=== PATIENT | male | born 1975 | race Caucasian/White ===

== ENCOUNTER 2017-07-10 20:33 | Emergency (ER) | payer SELFPAY ==
[2017-07-10 22:22] VITALS: BP 132/86; PULSE 99; RESP 20; TEMP 37.2; O2SAT 99; BMI 26.6
--- NOTE | 2017-07-10 23:11 | HMH.EDUTC ---
[facility] – [place] Disposition Clinical Impression: Vomiting and diarrhea, Esophagitis Disposition: Home, Self-Care Condition on Discharge: Good Instructions: DI for Viral Gastroenteritis -- Adult, DI for Esophagitis Additional Instructions: Should improve with cocktail given. Likely due to so much vomiting today. Sleep elevated tonight. Avoid foods that increase acid (chocolate, spicy foods, peppermints, tomato based foods, greasy foods) and avoid eating 2 hours before laying down Follow up with primary care for new or worsening symptoms. Forms: Work/School Release Time of Disposition: 23:32 Medical Decision Making Vital Signs: 07/10/17 22:22 Temperature 99 F Temperature Source Temporal Artery Scan Pulse Rate [Brachial] 99 H Respiratory Rate 20 Blood Pressure [Right Arm] 132/86 Blood Pressure Mean [Right Arm] 101 Blood Pressure Source [Right Arm] Automatic Cuff Blood Pressure Position [Right Arm] Sitting 02 Sat by Pulse Oximetry 99 Oxygen Delivery Method Room Air Orders (Tests/Meds): ED MEDICATIONS Discontinued Medications Generic Name Dose Route Start Last Admin Trade Name Freq PRN Reason Stop Dose Admin Belladonna Alkaloids 60 ml 07/10/17 23:17 07/10/17 23:23 Gi Cocktail 60ml Udc PO 07/10/17 23:18 60 ml ONCE ONE Administration - Jean Marie Inquiry Pt receiving controlled substance: No - Reevaluation(s) Time: 11:31 Reevaluation #1: Burning resolved. [facility] [place] HPI - General Stated complaint: V&D,aBD PAIN Time Seen by Provider: 07/10/17 23:11 Mode of Arrival: Ambulatory Source of Information: Patient Limitations: No Limitations Description of Symptoms (Recalled from Triage Doc. by RN): V/D, ABD FELS LIKE ITS ON FIRE HEENT Symptoms (Recalled from RN notes): No Resp Symptoms (Recalled from RN notes): No Skin Symptoms (Recalled from RN notes): No MS Symptoms (Recalled from RN notes): No Functional Status (Recalled from RN notes): NA - History of Present Illness Provider Complaint: c/o stomach burning like it is on fire . Started w/ waking up to N/V/D. Reporting from approx 9-12 this morning it was constantly coming out of both ends. like water . Since then, diarrhea has resolved. Vomiting has continued throughout the day with anything other than water (currently drinking Mt Dew). No nausea. Ate meatload for supper and came right back up . Does not currently have nausea I feel great except this burning . Was feeling good until he went to bed tonight. Once laying down, burning started. Unable to get comfortable. Hx of GERD. Typically controlled w/ omeprazole. Denies chest pain, cough, fever, abdominal pain just this burning is all . No known sick contacts. - Related Data Home Medications Medication Instructions Recorded Confirmed Lisinopril [Lisinopril 40mg Tablet] 40 mg PO DAILY 07/10/17 07/10/17 Omeprazole [Omeprazole 40mg 40 mg PO DAILY 07/10/17 07/10/17 Capsule] Allergies Allergy/AdvReac Type Severity Reaction Status Date / Time No Known Allergies Allergy Verified 07/10/17 22:26 - Worker's Comp Is this a Worker's Comp case?: No [facility] History I have reviewed the patient's past medical history: Yes Medical History: Reports:: Gastroesophageal Reflux Disease(GERD), Hypertension Denies:: Diabetes Mellitus Type 1, Diabetes Mellitus Type 2 Other Surgeries: Yes: Other (brain surgery) - Social History Alcohol Intake: never - Psychiatric History Expresses thoughts of harming self/others: None Suicide Plan Description: No Plan ROS Obtained: Yes Systems reviewed as appropriate & no additional complaints - Constitutional Constitutional: Reports as per HPI, Denies body ache, Denies chills, Denies fatigue, Denies poor appetite - Eyes Eyes: Denies change in vision, Denies eye discharge, Denies eye pain - ENT Ears, Nose, Mouth, and Throat: Denies otalgia, Denies nasal congestion, Denies nasal discharge, Denies pain with swallowing - Cardiovascular Cardiov
--- NOTE | 2017-07-10 23:17 | ED_ITS ---
[facility] [place] Impression: Vomiting and diarrhea, Esophagitis Disposition: Home, Self-Care Condition on Discharge: Good Instructions: DI for Viral Gastroenteritis -- Adult, DI for Esophagitis Additional Instructions: Should improve with cocktail given. Likely due to so much vomiting today. Sleep elevated tonight. Avoid foods that increase acid (chocolate, spicy foods, peppermints, tomato based foods, greasy foods) and avoid eating 2 hours before laying down Follow up with primary care for new or worsening symptoms. Forms: Work/School Release Time of Disposition: 23:32 Medical Decision Making Vital Signs: 07/10/17 22:22 Temperature 99 F Temperature Source Temporal Artery Scan Pulse Rate [Brachial] 99 H Respiratory Rate 20 Blood Pressure [Right Arm] 132/86 Blood Pressure Mean [Right Arm] 101 Blood Pressure Source [Right Arm] Automatic Cuff Blood Pressure Position [Right Arm] Sitting 02 Sat by Pulse Oximetry 99 Oxygen Delivery Method Room Air Orders (Tests/Meds): ED MEDICATIONS Discontinued Medications Generic Name Dose Route Start Last Admin Trade Name Freq PRN Reason Stop Dose Admin Belladonna Alkaloids 60 ml 07/10/17 23:17 07/10/17 23:23 Gi Cocktail 60ml Udc PO 07/10/17 23:18 60 ml ONCE ONE Administration - Jean Marie Inquiry Pt receiving controlled substance: No - Reevaluation(s) Time: 11:31 Reevaluation #1: Burning resolved. [facility] [place] - General Stated complaint: V&D,aBD PAIN Time Seen by Provider: 07/10/17 23:11 Mode of Arrival: Ambulatory Source of Information: Patient Limitations: No Limitations Description of Symptoms (Recalled from Triage Doc. by RN): V/D, ABD FELS LIKE ITS ON FIRE HEENT Symptoms (Recalled from RN notes): No Resp Symptoms (Recalled from RN notes): No Skin Symptoms (Recalled from RN notes): No MS Symptoms (Recalled from RN notes): No Functional Status (Recalled from RN notes): NA - History of Present Illness Provider Complaint: c/o stomach burning like it is on fire . Started w/ waking up to N/V/D. Reporting from approx 9-12 this morning it was constantly coming out of both ends. like water . Since then, diarrhea has resolved. Vomiting has continued throughout the day with anything other than water (currently drinking Mt Dew). No nausea. Ate meatload for supper and came right back up . Does not currently have nausea I feel great except this burning . Was feeling good until he went to bed tonight. Once laying down, burning started. Unable to get comfortable. Hx of GERD. Typically controlled w/ omeprazole. Denies chest pain, cough, fever, abdominal pain just this burning is all . No known sick contacts. - Related Data Home Medications Medication Instructions Recorded Confirmed Lisinopril [Lisinopril 40mg Tablet] 40 mg PO DAILY 07/10/17 07/10/17 Omeprazole [Omeprazole 40mg 40 mg PO DAILY 07/10/17 07/10/17 Capsule] Allergies Allergy/AdvReac Type Severity Reaction Status Date / Time No Known Allergies Allergy Verified 07/10/17 22:26 - Worker's Comp Is this a Worker's Comp case?: No [facility] History I have reviewed the patient's past medical history: Yes Medical History: Reports:: Gastroesophageal Reflux Disease(GERD), Hypertension Denies:: Diabetes Mellitus Type 1, Diabetes Mellitus T
[2017-07-10 23:32] VITALS: BP 132/86; PULSE 99; RESP 20; TEMP 37.2; O2SAT 99
== END 2017-07-10 23:34 | disposition home or self-care (01) ==
PROVIDERS: Emergency Provider Nurse Practitioner Family
DX: K20.9 Esophagitis, unspecified (principal); K21.9 Gastro-esophageal reflux disease without esophagitis; I10 Essential (primary) hypertension
CPT/HCPCS: 99202

== ENCOUNTER 2017-07-11 12:13 | Emergency (ER) | payer SELFPAY ==
[2017-07-11 12:23] VITALS: BP 134/80; PULSE 93; RESP 20; TEMP 36.4; O2SAT 98; BMI 26.6
--- NOTE | 2017-07-11 12:29 | HMH.EDUTC ---
[facility] [place] Disposition Clinical Impression: GERD (gastroesophageal reflux disease) Qualifiers: Esophagitis presence: with esophagitis Qualified Code(s): K21.0 - Gastro-esophageal reflux disease with esophagitis Disposition: Home, Self-Care Condition on Discharge: Good Instructions: Gastroesophageal Reflux Disease (Alternative Therapy), DI for Gastroesophageal Reflux Disease (GERD), GERD Diet Additional Instructions: Follow up with family doctor immediately If any difficulty breathing, blood in stools, blood in vomit or any other life threatening symptoms straight to ER Avoid spicy, or fried foods for next several days to allow stomach time to heal and settle down Sleep elevated Avoid foods that increase acid (chocolate, spicy foods, peppermints, tomato based foods, greasy foods) and avoid eating 2 hours before laying down Follow up with primary care for new or worsening symptoms. Referrals: Patsy Mcgrath APRN [Primary Care Provider] - As needed Time of Disposition: 12:38 Medical Decision Making - Medical Records Medical records reviewed: Yes: I reviewed the patient's medical records. Vital Signs: 07/11/17 12:23 Temperature 97.5 F L Temperature Source Temporal Artery Scan Pulse Rate [Right] 93 H Respiratory Rate 20 Blood Pressure [Right Arm] 134/80 Blood Pressure Mean [Right Arm] 98 Blood Pressure Source [Right Arm] Automatic Cuff Blood Pressure Position [Right Arm] Sitting 02 Sat by Pulse Oximetry 98 Oxygen Delivery Method Room Air - Jean Marie Inquiry Pt receiving controlled substance: No Jean Marie was queried for this patient: No - Reevaluation(s) Time: 12:34 Reevaluation #1: Patient educated to follow up with family doctor to have medication changed and adding and removing of medication. Patient verbalized understanding Time: 12:38 Reevaluation #3: Patient state that burning in stomach improved after GI cocktail [facility] [place] HPI - General Stated complaint: stomach pain, burning sensation Mode of Arrival: Ambulatory Source of Information: Patient Limitations: No Limitations Description of Symptoms (Recalled from Triage Doc. by RN): c/o stomach problems here last night for same HEENT Symptoms (Recalled from RN notes): No Resp Symptoms (Recalled from RN notes): No Skin Symptoms (Recalled from RN notes): No MS Symptoms (Recalled from RN notes): No Functional Status (Recalled from RN notes): N - History of Present Illness Provider Complaint: Patient state that he was seen in the [facility] last night for burning in his stomach States that he has a history of GERD State that recently he wasn't eating like he should and eat some fried foods that irritated his stomach State that yesterday he had vomiting and diarrhea all day States that he came in here last night because he was having the burning feeling and was given some medication to drink and it helped witht the burning in his stomach State that this morning he woke up again and was having the same burning so he came back to the [facility] to see if he could get a prescription for that medication - Related Data Home Medications Medication Instructions Recorded Confirmed Lisinopril [Lisinopril 40mg Tablet] 40 mg PO DAILY 07/10/17 07/10/17 Omeprazole [Omeprazole 40mg 40 mg PO DAILY 07/10/17 07/10/17 Capsule] Allergies Allergy/AdvReac Type Severity Reaction Status Date / Time No Known Allergies Allergy Verified 07/10/17 22:26 - Worker's Comp Is this a Worker's Comp case?: No [facility] History I have reviewed the patient's past medical history: Yes Medical History: Reports:: Gastroesophageal Reflux Disease(GERD), Hypertension Denies:: Diabetes Mellitus Type 1, Diabetes Mellitus Type 2 Other Surgeries: Yes: Other (brain surgery) - Social History Alcohol Intake: never - Psychiatric History Expresses thoughts of harming self/others: None Suicide Plan Description: No Plan ROS Obtained: Yes All systems reviewed & no additional complaints - Gastroin
[2017-07-11 12:31] VITALS: BP 134/80; PULSE 93; RESP 20; TEMP 36.4
--- NOTE | 2017-07-11 12:32 | ED_ITS ---
[facility] [place] Disposition Clinical Impression: GERD (gastroesophageal reflux disease) Qualifiers: Esophagitis presence: with esophagitis Qualified Code(s): K21.0 - Gastro- esophageal reflux disease with esophagitis Disposition: Home, Self-Care Condition on Discharge: Good Instructions: Gastroesophageal Reflux Disease (Alternative Therapy), DI for Gastroesophageal Reflux Disease (GERD), GERD Diet Additional Instructions: Follow up with family doctor immediately If any difficulty breathing, blood in stools, blood in vomit or any other life threatening symptoms straight to ER Avoid spicy, or fried foods for next several days to allow stomach time to heal and settle down Sleep elevated Avoid foods that increase acid (chocolate, spicy foods, peppermints, tomato based foods, greasy foods) and avoid eating 2 hours before laying down Follow up with primary care for new or worsening symptoms. Referrals: Patsy Mcgrath APRN [Primary Care Provider] - As needed Time of Disposition: 12:38 Medical Decision Making - Medical Records Medical records reviewed: Yes: I reviewed the patient's medical records. Vital Signs: 07/11/17 12:23 Temperature 97.5 F L Temperature Source Temporal Artery Scan Pulse Rate [Right] 93 H Respiratory Rate 20 Blood Pressure [Right Arm] 134/80 Blood Pressure Mean [Right Arm] 98 Blood Pressure Source [Right Arm] Automatic Cuff Blood Pressure Position [Right Arm] Sitting 02 Sat by Pulse Oximetry 98 Oxygen Delivery Method Room Air - Jean Marie Inquiry Pt receiving controlled substance: No Jean Marie was queried for this patient: No - Reevaluation(s) Time: 12:34 Reevaluation #1: Patient educated to follow up with family doctor to have medication changed and adding and removing of medication. Patient verbalized understanding Time: 12:38 Reevaluation #3: Patient state that burning in stomach improved after GI cocktail [facility] [place] HPI - General Stated complaint: stomach pain, burning sensation Mode of Arrival: Ambulatory Source of Information: Patient Limitations: No Limitations Description of Symptoms (Recalled from Triage Doc. by RN): c/o stomach problems here last night for same HEENT Symptoms (Recalled from RN notes): No Resp Symptoms (Recalled from RN notes): No Skin Symptoms (Recalled from RN notes): No MS Symptoms (Recalled from RN notes): No Functional Status (Recalled from RN notes): N - History of Present Illness Provider Complaint: Patient state that he was seen in the [facility] last night for burning in his stomach States that he has a history of GERD State that recently he wasn't eating like he should and eat some fried foods that irritated his stomach State that yesterday he had vomiting and diarrhea all day States that he came in here last night because he was having the burning feeling and was given some medication to drink and it helped witht the burning in his stomach State that this morning he woke up again and was having the same burning so he came back to the [facility] to see if he could get a prescription for that medication - Related Data Home Medications Medication Instructions Recorded Confirmed Lisinopril [Lisinopril 40mg Tablet] 40 mg PO DAILY 07/10/17 07/10/17 Omeprazole [Omeprazole 40mg 40 mg PO DAILY 07/10/17 07/10/17 Capsule] Allergies Allergy/AdvReac Type Severity Reaction Status Date / Time No Known Allergies Allergy Verified
== END 2017-07-11 12:50 | disposition home or self-care (01) ==
PROVIDERS: Emergency Provider Nurse Practitioner; PCP Nurse Practitioner Family
DX: K21.0 Gastro-esophageal reflux disease with esophagitis (principal)
CPT/HCPCS: 99202

== ENCOUNTER 2017-07-12 15:58 | Inpatient (IN) | payer SELFPAY ==
[2017-07-12 16:04] VITALS: BP 132/92; PULSE 103; RESP 18; TEMP 36.6; O2SAT 98; BMI 32.5
--- NOTE | 2017-07-12 16:30 | CT_ITS ---
CT abdomen pelvis w con Ordering Physician: Grover Mckay MD Patient Age: 42 years: Male HISTORY: ITS.REASON: upper abdominal pain, po and IVC contrast. Upper abdominal pain with nausea, vomiting, diarrhea. TECHNIQUE: Helical CT scans abdomen and pelvis following oral and IV contrast. 75 cc [id number] utilized. Sagittal coronal reconstructions on CT workstation COMPARISON :No previous relevant studies FINDINGS Lung bases no active disease. On axial slice1 There is a small 3.5 mm nodular density at the posterior RLL. Nonspecific even be a peripheral vessel on end partially imaged. There is also some linear scarring and atelectasis at the posterior sulcus on right more so than left. The heart is normal in size. Abdomen. Liver. Unremarkable No focal lesions. Spleen unremarkable. Pancreas unremarkable. Adrenals unremarkable. Kidneys unremarkable. No urinary tract calculi nor obstruction. No retroperitoneal adenopathy GI tract.: The significant finding is the high-grade small bowel obstruction. With caliber transition is seen at the right abdomen,, I believe best seen on sagittal image 30, and also seen on axial image 68-71. This point of transition involves the distal jejunum. No discrete obstructing mass is identified no free airaker The bowel loops proximal to the transition point are markedly distended. Diffuse wall thickening of these small bowel loops leading to this transition point. Also note mesenteric stranding and edema leading to the dilated bowel loops optically towards right abdomen... . There is minimal free fluid along the inferior right paracolic gutter entering extending into the pelvis with moderate/generous free fluid collection is seen at the pelvis/and pelvic basin. The contrast-filled stomach is quite distended as well with with likely associated gastroesophageal reflux into the contrast-filled slightly dilated distal esophagus as well. Large bowel: Minimal stool the rectum. Moderate diverticulosis sigmoid & left colon. Upper normal-to mild wall thickeningsigmoid colon & descending colon noted. Possibly could reflect colitis although may merely reflect lack of distention. Slight hazy appearance pericolic fat adjacent to areas of descending colon noted but most likely reflects a more generalized process. Less likely a localized area of of colitis. Generous fat along the left inguinal canal with. May reflect modest developing fat-containing left inguinal hernia but no bowel loops associated. Incidental observation. No osseous lesions or findings. ==IMPRESSION:= 1. High-Grade Small Bowel Obstruction:. Transition point identified Right mid abdomen, likely at distal jejunum/ileum junction region. No obstructing mass or lesion evident. Suspect adhesion or possible internal hernia. Prominent distention of small bowel loops proximal to this transition point. Prominent distended Stomach with reflux into the distal esophagus. Wall thickening of small bowel loops leading to this transition point.. Mesenteric edema & stranding,, with resultant Free fluid collection accumulating at pelvis.... No free air 2.. Mild wall thickening sigmoid & left colon may reflect lack of distention, although could possibly reflect reflects mild colitis.. Diverticulosis most evident sigmoid colon. No convincing additional diverticulitis. 3. Bibasilar.Atelectasis & Scarring. Small 3.5 mm noduleposterior RLL
--- NOTE | 2017-07-12 16:47 | HMH.EDABDPAI ---
ED Disposition Clinical Impression: Small bowel obstruction Clinical Impression: (Ruled Out): H/O small bowel obstruction Disposition: Still a Patient Condition on Discharge: Fair Instructions: DI for Acute Abdomen Referrals: Patsy Mcgrath APRN [Primary Care Provider] - - Critical Care Critical Care Time: No Attestation: On 07/12/17, the high probability of a clinically significant, sudden or life threatening deterioration of the following system(s) required my full and direct attention, intervention and personal management. The time I documented below is in addition to time spent performing reported procedures but includes the following listed in this critical care notation. Medical Decision Making Vital Signs: 07/12/17 16:04 Temperature 97.9 F Temperature Source Temporal Artery Scan Pulse Rate [Right Brachial] 103 H Respiratory Rate 18 Blood Pressure [Right Arm] 132/92 Blood Pressure Mean [Right Arm] 105 Blood Pressure Source [Right Arm] Automatic Cuff Blood Pressure Position [Right Arm] Sitting 02 Sat by Pulse Oximetry 98 Oxygen Delivery Method Room Air - Lab Data Lab Results 07/12/17 16:50: WBC 9.9, RBC 6.40 H, Hgb 17.4, Hct 53.1 H, MCV 82.9, MCH 27.2, MCHC 32.8, RDW 12.8, Plt Count 275, MPV 7.7, Neut % (Auto) 75.9, Lymph % (Auto) 15.1, Pine % (Auto) 7.3, Eos % (Auto) 1.6, Baso % (Auto) 0.2, Neut # (Auto) 7.5, Lymph # (Auto) 1.5, Pine # (Auto) 0.7, Eos # (Auto) 0.2, Baso # (Auto) 0.0 07/12/17 16:50: Sodium 132 L, Potassium 3.7, Chloride 95 L, Carbon Dioxide 32, Anion Gap 8.7, BUN 17, Creatinine 1.05, Estimated Creat Clear 132, Estimated GFR 78, Est GFR ( Amer) 95, Glucose 115 H, Calcium 9.1, Total Bilirubin 0.5, AST 10 L, ALT 36, Alkaline Phosphatase 99, Total Protein 8.4 H, Albumin 4.0, Globulin 4.4 H, Albumin/Globulin Ratio 0.9 L, Lipase 101 07/12/17 16:55: Troponin I < 0.02 Result diagrams: 07/12/17 16:50 07/12/17 16:50 Orders (Tests/Meds): ED MEDICATIONS Generic Name Dose Route Start Last Admin Trade Name Carina PRN Reason Stop Dose Admin Pantoprazole Sodium 80 mg/ 100 mls @ 10 mls/hr 07/12/17 17:50 Sodium Chloride IV 07/15/17 17:49 .Q10H RYAN Sodium Chloride 1,000 mls @ 999 mls/hr 07/12/17 18:00 Sod Chlor 0.9% 1000ml Bag IV 07/12/17 19:00 .[id number] RYAN Discontinued Medications Generic Name Dose Route Start Last Admin Trade Name Carina PRN Reason Stop Dose Admin Diatrizoate Meglum/Diatrizoate Sod 30 ml 07/12/17 16:36 07/12/17 16:37 Gastrografin 66%-10% 30ml PO 07/12/17 16:37 30 ml ONCE ONE Administration Famotidine 20 mg 07/12/17 16:31 07/12/17 16:59 Pepcid 20mg/2ml Vial IV 07/12/17 16:32 20 mg ONCE ONE Administration Pantoprazole Sodium 80 mg/ 100 mls @ 100 mls/hr 07/12/17 16:50 07/12/17 16:59 Sodium Chloride IV 07/12/17 17:49 100 mls/hr ONCE ONE Administration Iopamidol 75 ml 07/12/17 18:39 07/12/17 18:41 [id number]; 75ml Vial IV 07/12/17 18:40 75 ml ONCE ONE Administration Ketorolac Tromethamine 30 mg 07/12/17 16:31 07/12/17 16:59 Toradol 30mg/Ml Vial IV 07/12/17 16:32 30 mg ONCE ONE Administration Promethazine HCl 12.5 mg 07/12/17 16:50 07/12/17 16:59 Phenergan 25mg/Ml 1ml Vial IV 07/12/17 16:51 12.5 mg ONCE ONE Administration Sodium Chloride 25 ml 07/12/17 16:50 07/12/17 16:59 Sod Chlor 0.9% 25ml Bag IV 07/12/17 16:51 25 ml ONCE ONE Administration Sodium Chloride 10 ml 07/12/17 18:39 07/12/17 18:41 Rad-Saline Flush 10ml Syringe IV 07/12/17 18:40 10 ml ONCE ONE Administration ORDERS Category Date Time Status CT abdomen pelvis w con Stat Cat Scan 07/12/17 16:30 Taken Lactic Acid Stat Lab 07/12/17 18:34 Ordered UA [Urinalysis and Microscopic] Stat Lab 07/12/17 17:49 Ordered - CT Data CT Scan: Abdomen, Pelvis Time Received: 18:[address] Reviewed: Yes: I have viewed the radiologist's interpretation Preliminary Findings: Abnor
[2017-07-12 16:58] LABS: Basophils % 0.2 % (0.1-2.0); Eosinophils # 0.2 K/mm3 (0.0-0.4); Eosinophils % 1.6 % (0.1-12.0); Hematocrit 53.1 % (42.0-52.0); Hemoglobin 17.4 g/dL (14.1-18.0); Lymphocytes # 1.5 K/mm3 (0.7-4.5); Lymphocytes % 15.1 K/mm3 (10-50); Mean Corpuscular HGB Conc 32.8 g/dL (31.8-35.4); Mean Corpuscular Hemoglobin 27.2 pg (27.0-31.2); Mean Corpuscular Volume 82.9 fl (80-94); Mean Platelet Volume 7.7 fl (7.4-10.4); Monocytes # 0.7 K/mm3 (0.1-1.0); Monocytes % 7.3 % (1.7-9.3); Neutrophils # 7.5 K/mm3 (1.8-7.8); Neutrophils % 75.9 % (37.0-80.0); Platelet Count 275 K/mm3 (142-424); Red Cell Distribution Width 12.8 % (11.5-17.5); White Blood Count 9.9 K/mm3 (4.8-10.8)
[2017-07-12 17:14] LABS: Alanine Aminotransferase 36 U/L (12-78); Albumin/Globulin Ratio 0.9 (1.1-1.8); Alkaline Phosphatase 99 U/L (46-116); Anion Gap 8.7 mEq/L (5-15); Aspartate Amino Transferase 10 U/L (15-37); Bilirubin,Total 0.5 mg/dL (0.2-1.0); Blood Urea Nitrogen 17 mg/dL (7-18); Calcium 9.1 mg/dL (8.5-10.1); Carbon Dioxide 32 mmol/L (21.0-32.0); Chloride 95 mmol/L (98-107); Creatinine Clearance Estimated 132 mL/min (0-300); Creatinine,Serum 1.05 mg/dL (0.70-1.30); Estimated Glomerular Filt Rate 78 ml/min (>60); GFR (African American) 95 ML/MIN (>60); Globulin 4.4 gm/dl (1.3-3.2); Glucose 115 mg/dL (74-106); Lipase 101 u/L (73-393); Potassium 3.7 mmoL/L (3.5-5.1); Sodium 132 mmol/L (136-145); Total Protein,Serum 8.4 gm/dL (6.4-8.2)
[2017-07-12 18:04] LABS: Troponin I < 0.02 ng/ml (0.00-0.06)
--- NOTE | 2017-07-12 18:40 | PC.NURSE ---
DR. BARTON SPEAKING WITH DR. LOPEZ AT THIS TIME VIA PHONE CALL.
[2017-07-12 19:05] LABS: Lactic Acid 1.4 mmol/L (0.4-2.0)
[2017-07-12 19:24] VITALS: BP 137/83; PULSE 90; RESP 18; TEMP 36.8; O2SAT 100
--- NOTE | 2017-07-12 20:13 | PC.NURSE ---
called report to Alanna
[2017-07-12 20:28] VITALS: BP 137/83; PULSE 80; RESP 18; TEMP 36.8; O2SAT 100
[2017-07-12 21:00] VITALS: BP 125/80; PULSE 93; RESP 20; TEMP 36.7; O2SAT 98
[2017-07-12 21:06] VITALS: BMI 31.8
[2017-07-13] VITALS: BP 127/93; PULSE 83; RESP 18; TEMP 36.6; O2SAT 96
--- NOTE | 2017-07-13 05:09 | PC.NURSE ---
0200 PT CHECK IS CHARTED UNDER 0300 D/T TIME CHANGE. Lauryn ESPARZA, SRNA
--- NOTE | 2017-07-13 06:28 | PC.NURSE ---
PT HAS BEEN RECEIVING ICE CHIPS, RN SAID ITS FINE. PT ON NG DECOMPRESSION. Lauryn ESPARZA, SRNA
--- NOTE | 2017-07-13 06:46 | PC.NURSE ---
PT WAS A NEW ADMIT, DID NOT WANT SHOWER. PT HAS NOT BEEN UP TO USE THE RESTROOM SINCE HE WAS ADMITTED. HE SAYS HE DOES NOT HAVE THE URGE TO GO. PT IS ON NG DECOMPRESSION. Lauryn ESPARZA, SRNA
[2017-07-13 07:04] LABS: Basophils % 0.5 % (0.1-2.0); Eosinophils # 0.1 K/mm3 (0.0-0.4); Eosinophils % 1.3 % (0.1-12.0); Hematocrit 45.6 % (42.0-52.0); Lymphocytes # 1.7 K/mm3 (0.7-4.5); Mean Corpuscular HGB Conc 32.4 g/dL (31.8-35.4); Mean Corpuscular Volume 83.2 fl (80-94); Mean Platelet Volume 7.9 fl (7.4-10.4); Monocytes # 0.6 K/mm3 (0.1-1.0); Monocytes % 7.3 % (1.7-9.3); Neutrophils # 6.3 K/mm3 (1.8-7.8); Neutrophils % 71.9 % (37.0-80.0); Platelet Count 252 K/mm3 (142-424); Red Blood Count 5.47 M/mm3 (4.60-6.20); White Blood Count 8.7 K/mm3 (4.8-10.8)
[2017-07-13 07:12] LABS: Hemoglobin 14.8 g/dL (14.1-18.0)
[2017-07-13 07:20] VITALS: BP 119/80; PULSE 77; RESP 18; TEMP 36.6; O2SAT 97
[2017-07-13 07:23] LABS: Alanine Aminotransferase 28 U/L (12-78); Albumin Level 3.1 gm/dL (3.4-5.0); Albumin/Globulin Ratio 0.9 (1.1-1.8); Alkaline Phosphatase 80 U/L (46-116); Anion Gap 9.8 mEq/L (5-15); Aspartate Amino Transferase 8 U/L (15-37); Bilirubin,Total 0.4 mg/dL (0.2-1.0); Blood Urea Nitrogen 18 mg/dL (7-18); Calcium 8.2 mg/dL (8.5-10.1); Carbon Dioxide 28 mmol/L (21.0-32.0); Chloride 101 mmol/L (98-107); Creatinine Clearance Estimated 145 mL/min (0-300); Creatinine,Serum 0.94 mg/dL (0.70-1.30); Estimated Glomerular Filt Rate 89 ml/min (>60); GFR (African American) 108 ML/MIN (>60); Globulin 3.6 gm/dl (1.3-3.2); Glucose 122 mg/dL (74-106); Magnesium 2.2 mg/dL (1.4-2.2); Potassium 3.8 mmoL/L (3.5-5.1); Sodium 135 mmol/L (136-145); Total Protein,Serum 6.7 gm/dL (6.4-8.2)
--- NOTE | 2017-07-13 10:31 | HMH.GSCON ---
*Admission Date: 07/12/17 *Chief complaint: vomiting, abdominal pain *History of present illness: 42 year old male who presented to ED yesterday with several days of nausea/vomiting and abdominal pain. He states that he woke up morning with abdominal cramps that became progressively worse and was associated with nausea/vomiting. He attributed these symptoms to some pork he ate for dinner on Friday evening. He was seen in urgent care several times on Friday, where he received GI cocktails which improved the symptoms. Symptoms then got worse yesterday, prompting his visit to the ED. An NG was placed on admission last night and has put out ~2L in the last 14 hours. He states that his last BM was yesterday morning and was loose. He has passed a lot of flatus overnight and feels much better today. His labs are normal. His CT scan from last night shows a dilated stomach and proximal small bowel with decompressed distal small bowel and a transition point in the RLQ. Surgery has been consulted for evaluation of SBO. Review of Systems - Constitutional Reports chills, Denies anorexia, Denies fever(s), Denies headache(s) - Eyes Denies change in vision - ENT Denies nasal congestion, Denies nasal discharge - *Cardiovascular Denies chest pain - *Respiratory Denies chest congestion, Denies cough, Denies shortness of breath - *Gastrointestinal Reports abdominal pain, Reports change in bowel habits, Reports cramping, Reports loose stools, Reports nausea, Reports vomiting - *Musculoskeletal Denies joint pain, Denies body aches - Integumentary/Breasts Denies lesions [facility] History Medical History: Reports:: Gastroesophageal Reflux Disease(GERD), Hypertension Denies:: Cancer, Diabetes Mellitus Type 1, Diabetes Mellitus Type 2, MRSA Other Surgeries: Yes: Other (brain surgery for benign tumor ~10 years ago at ) Amputation: No Fractures: No - *Social History Educational Level: Completed High School Alcohol Intake: never Occupational Status: employed Housing: house Household Members: family - Psychiatric History Expresses thoughts of harming self/others: None Suicide Plan Description: No Plan *Family Hx:: No significant family history Meds Home Medications Medication Instructions Recorded Confirmed Type Lisinopril [Lisinopril 40mg Tablet] 40 mg PO DAILY 07/10/17 07/12/17 History Omeprazole [Omeprazole 40mg 40 mg PO DAILY 07/10/17 07/12/17 History Capsule] Allergies Allergy/AdvReac Type Severity Reaction Status Date / Time No Known Allergies Allergy Verified 07/10/17 22:26 Exam Vital signs and Labs for Last 24 Hours: Temp Pulse Resp BP Pulse Ox 97.9 F 77 18 119/80 97 07/13/17 07:20 07/13/17 07:20 07/13/17 07:20 07/13/17 07:20 07/13/17 07:20 Laboratory Results - last 24 hr 07/13/17 06:45: WBC 8.7, RBC 5.47, Hgb 14.8 D, Hct 45.6, MCV 83.2, MCH 27.0, MCHC 32.4, RDW 13.0, Plt Count 252, MPV 7.9, Neut % (Auto) 71.9, Lymph % (Auto) 19.0, [place] % (Auto) 7.3, Eos % (Auto) 1.3, Baso % (Auto) 0.5, Neut # (Auto) 6.3, Lymph # (Auto) 1.7, [place] # (Auto) 0.6, Eos # (Auto) 0.1, Baso # (Auto) 0.0 07/13/17 06:45: Sodium 135 L, Potassium 3.8, Chloride 101, Carbon Dioxide 28, Anion Gap 9.8, BUN 18, Creatinine 0.94, Estimated Creat Clear 145, Estimated GFR 89, Est GFR ( Amer) 108, Glucose 122 H, Calcium 8.2 L, Magnesium 2.2, Total Bilirubin 0.4, AST 8 L, ALT 28, Alkaline Phosphatase 80, Total Protein 6.7, Albumin 3.1 L D, Globulin 3.6 H, Albumin/Globulin Ratio 0.9 L I & O for Last 24 hours: Intake & Output 07/10/17 07/11/17 07/12/17 07/14/17 23:59 23:59 23:59 00:59 Intake Total 300 / 300 Balance 300 / 300 Weight 216 lb 1 oz - Constitutional no acute distress, cooperative - *Routine HEENT Exam Head: Present: normocephalic, atraumatic - *Routine Respiratory Exam Present: CTA bilaterally. Absent: accessory muscle use, respiratory distress - *Routine Car
--- NOTE | 2017-07-13 10:37 | P.CONS_ITS ---
*Admission Date: 07/12/17 *Chief complaint: vomiting, abdominal pain *History of present illness: 42 year old male who presented to ED yesterday with several days of nausea/ vomiting and abdominal pain. He states that he woke up morning with abdominal cramps that became progressively worse and was associated with nausea/ vomiting. He attributed these symptoms to some pork he ate for dinner on Friday evening. He was seen in urgent care several times on Friday, where he received GI cocktails which improved the symptoms. Symptoms then got worse yesterday, prompting his visit to the ED. An NG was placed on admission last night and has put out ~2L in the last 14 hours. He states that his last BM was yesterday morning and was loose. He has passed a lot of flatus overnight and feels much better today. His labs are normal. His CT scan from last night shows a dilated stomach and proximal small bowel with decompressed distal small bowel and a transition point in the RLQ. Surgery has been consulted for evaluation of SBO. Review of Systems - Constitutional Reports chills, Denies anorexia, Denies fever(s), Denies headache(s) - Eyes Denies change in vision - ENT Denies nasal congestion, Denies nasal discharge - *Cardiovascular Denies chest pain - *Respiratory Denies chest congestion, Denies cough, Denies shortness of breath - *Gastrointestinal Reports abdominal pain, Reports change in bowel habits, Reports cramping, Reports loose stools, Reports nausea, Reports vomiting - *Musculoskeletal Denies joint pain, Denies body aches - Integumentary/Breasts Denies lesions [facility] History Medical History: Reports:: Gastroesophageal Reflux Disease(GERD), Hypertension Denies:: Cancer, Diabetes Mellitus Type 1, Diabetes Mellitus Type 2, MRSA Other Surgeries: Yes: Other (brain surgery for benign tumor ~10 years ago at ) Amputation: No Fractures: No - *Social History Educational Level: Completed High School Alcohol Intake: never Occupational Status: employed Housing: house Household Members: family - Psychiatric History Expresses thoughts of harming self/others: None Suicide Plan Description: No Plan *Family Hx:: No significant family history Meds Home Medications Medication Instructions Recorded Confirmed Type Lisinopril [Lisinopril 40mg Tablet] 40 mg PO DAILY 07/10/17 07/12/17 History Omeprazole [Omeprazole 40mg 40 mg PO DAILY 07/10/17 07/12/17 History Capsule] Allergies Allergy/AdvReac Type Severity Reaction Status Date / Time No Known Allergies Allergy Verified 07/10/17 22:26 Exam Vital signs and Labs for Last 24 Hours: Temp Pulse Resp BP Pulse Ox 97.9 F 77 18 119/80 97 07/13/17 07:20 07/13/17 07:20 07/13/17 07:20 07/13/17 07:20 07/13/17 07:20 Laboratory Results - last 24 hr 07/13/17 06:45: WBC 8.7, RBC 5.47, Hgb 14.8 D, Hct 45.6, MCV 83.2, MCH 27.0, MCHC 32.4, RDW 13.0, Plt Count 252, MPV 7.9, Neut % (Auto) 71.9, Lymph % (Auto) 19.0, [place] % (Auto) 7.3, Eos % (Auto) 1.3, Baso % (Auto) 0.5, Neut # (Auto) 6.3 , Lymph # (Auto) 1.7, [place] # (Auto) 0.6, Eos # (Auto) 0.1, Baso # (Auto) 0.0 07/13/17 06:45: Sodium 135 L, Potassium 3.8, Chloride 101, Carbon Dioxide 28, Anion Gap 9.8, BUN 18, Creatinine 0.94, Estimated Creat Clear 145, Estimated GFR 89, Est GFR ( Amer) 108, Glucose 122 H, Calcium 8.2 L, Magnesium 2.2 , Total Bilirubin 0.4, AST 8 L, ALT 28, Alkaline Phosphatase 80, Total Protein 6.7, Albumin 3.1 L D, [place]
--- NOTE | 2017-07-13 10:48 | P.CONPHA_ITS ---
[facility] Pharm[facility] VTE Monitoring - Patient Demographics Admission date: 07/12/17 Report Date: 07/13/17 Time: 10:48 Allergies/Adverse Reactions: Patient Allergies No Known Allergies Allergy (Verified 07/10/17 22:26) Height: 1.75 m Weight: 98.004 kg Patient Problems: Current Active Problems Small bowel obstruction (Acute) - VTE Risk Labs: VTE Related Lab Results Hgb 14.8 g/dL (14.1-18.0) D 07/13/17 06:45 Hct 45.6 % (42.0-52.0) 07/13/17 06:45 Plt Count 252 K/mm3 (142-424) 07/13/17 06:45 BUN 18 mg/dL (7-18) 07/13/17 06:45 Creatinine 0.94 mg/dL (0.70-1.30) 07/13/17 06:45 Estimated Creat Clear 145 mL/min (0-300) 07/13/17 06:45 Was VTE Risk Assessment Performed: Yes VTE Score: 1 VTE Risk Level: Very Low Risk - Prophylaxis VTE Prophylaxis Ordered?: Yes Types of VTE Prophylaxis: TEDS Knee High Location of Applied Device: Bilateral Lower Extremeties
[2017-07-13 15:42] VITALS: BP 127/86; PULSE 90; RESP 18; TEMP 36.7; O2SAT 97
--- NOTE | 2017-07-13 17:43 | PC.NURSE ---
PATIENT RESTING IN BED AT THIS TIME WITH FAMILY AT BEDSIDE. SEEN PATIENT THIS AM AND GAVE ORDERS TO CLAMP NG TUBE FOR SIX HOURS , THEN CHECK RESIDUE , IF LESS THAN 30ML REMOVE TUBE. DURING THE SIX HOURS PATIENT DENIED ANY NAUSEA, HE IS STILL PASSING GAS. CHECKED RESIDUE AT 1630 AND THERE WAS 16ML. REMOVED NG TUBE , PATIENT TOLERATED WELL, AND ASKING FOR SOMETHING TO EAT, MD NOTIFIED AND NEW ORDERS WERE GIVEN. VITAL SIGNS STABLE, LUNG SOUNDS CLEAR. WILL CONTINUE TO MONITOR , CALL LIGHT WITHIN REACH, PATIENT DENIES ANY NEEDS, WILL GIVE REPORT TO ONCOMING NURSE.
--- NOTE | 2017-07-13 19:16 | PC.NURSE ---
REPORT GIVEN TO Valery EBRMAN RN
[2017-07-13 19:37] VITALS: BP 129/85; PULSE 91; RESP 18; TEMP 37.6; O2SAT 100
[2017-07-14 03:37] VITALS: BP 115/76; PULSE 82; RESP 16; TEMP 37.4; O2SAT 98
[2017-07-14 08:00] VITALS: BP 117/77; PULSE 90; RESP 16; TEMP 37.1; O2SAT 98
--- NOTE | 2017-07-14 10:44 | XR_ITS ---
XR acute abdomen series Ordering Physician: Anuja Love MD Patient Age: 42 years: Male HISTORY: ITS.REASON: BOWEL OBSTRUCTION Patient is feeling better. TECHNIQUE: Upright chest with flat and upright views of abdomen COMPARISON :CT abdomen pelvis 07/12/2017 and chest film 02/18/2009 FINDINGS ======= UPRIGHT CHEST. No free air beneath the diaphragm. Comparison is made to previous chest film 02/18/[address] abdomen which includes lung bases from 07/12/2017. Cardio megaly again noted. Less than optimal inspiration accentuates markings at bases but there is bibasilar airspace disease now evident. At left lung base retrocardiac there is minimal infiltrate. Also minimal infiltrate at medial right base. Findings here may reflect atelectasis but there are some air bronchograms particularly at the medial right. Findings could reflect developing pneumonia at bases. . When compared to the previous CT there is been marked diminished gaseous distention throughout small bowel. We continue see a a few distended small bowel loops measured 4.4 cm. questionable mild edematous wall thickening within some of these gas filled distended. Moderate air-fluid levels but less extensive than previous study. Only minimal stool and gas is seen throughout the colon. Overall large bowel appears fairly decompressed. Minimal contrast remains outlines the appendix on today's plain film. There is normal. Minimal liquid stool at the right colon. Moderate gas mildly distending rectum =======IMPRESSION 1.. Overall improvement with Decrease gas throughout the small bowel since CT 07/12/2017 2. we continue see a a few dilated loops of small bowel, with moderate air-fluid levels but overall improvement .. Question a suspect possibly some minimal edema/ wall thickening at these remaining slight small bowel loops. 3. Minimal liquid stool at the right colon. Overall large bowel decompressed with minimal content 4. Additional Bibasilar airspace disease. Mainly atelectasis but cannot exclude developing infiltrate at lung bases 4.
--- NOTE | 2017-07-14 11:25 | P.PN_ITS ---
Subjective Patient reports: feels better Narrative: Notes and imaging reviewed. Patient admitted with nausea, vomiting, abdominal bloating, and diarrhea. Diagnosed with small bowel obstruction by noncontrast CT scan. He now feels much better. He is tolerating clear liquid diet without difficulty. He is still having loose stools. Denies nausea or abdominal pain. Exam Vital signs and Labs for Last 24 Hours: Temp Pulse Resp BP Pulse Ox 98.8 F 90 16 117/77 98 07/14/17 08:00 07/14/17 08:00 07/14/17 08:00 07/14/17 08:00 07/14/17 08:00 I & O for Last 24 hours: Intake & Output 07/11/17 07/12/17 07/13/17 07/14/17 10:59 10:59 11:59 11:59 Intake Total 2512 / 2512 Output Total 900 / 900 Balance 1612 / 1612 Weight - Constitutional no acute distress - *Routine Abdominal Exam Present: soft Comments: No tenderness. Hypoactive bowel sounds. Progress Note: A&P - Time Spent With Patient less than 15 minutes (Check acute abdominal series today. If relatively unremarkable will advance diet. Possible discharge later today or tomorrow. Likely would plan for follow-up contrast CT scan versus small bowel follow- through as an outpatient.)
[2017-07-14 16:00] VITALS: BP 123/89; PULSE 91; RESP 18; TEMP 36.8; O2SAT 98
--- NOTE | 2017-07-14 16:31 | HMH.DCSUM ---
General - General Admission date: 07/12/17 Discharge date: 07/14/17 HPI HPI: 42 year old male who presented to ED yesterday with several days of nausea/vomiting and abdominal pain. He states that he woke up morning with abdominal cramps that became progressively worse and was associated with nausea/vomiting. He attributed these symptoms to some pork he ate for dinner on Friday evening. He was seen in urgent care several times on Friday, where he received GI cocktails which improved the symptoms. Symptoms then got worse yesterday, prompting his visit to the ED. An NG was placed on admission last night and has put out ~2L in the last 14 hours. He states that his last BM was yesterday morning and was loose. He has passed a lot of flatus overnight and feels much better today. His labs are normal. His CT scan from last night shows a dilated stomach and proximal small bowel with decompressed distal small bowel and a transition point in the RLQ. Hospital Course Hospital Course: He had the nasogastric tube placed with initially significant output. This had given him some relief. Following morning he was feeling much better. Please note the patient continued to have loose stools and passing gas throughout his hospitalization. He underwent a clamping trial of the nasogastric tube on 07/13/17 which she tolerated well. This was then discontinued and he was started on a clear liquid diet. He tolerated this well with no abdominal pain, bloating, nausea, or vomiting. Following morning he was feeling quite well. He underwent acute abdominal series evaluation which no evidence of any bowel obstruction. He was given a bland diet which she tolerated without difficulty. Arrangements were made for discharge home later that evening on 07/14/17. Objective Vital signs: Temp Pulse Resp BP Pulse Ox 98.2 F 91 H 18 123/89 98 07/14/17 16:00 07/14/17 16:00 07/14/17 16:00 07/14/17 16:00 07/14/17 16:00 no acute distress - *Routine Abdominal Exam Present: soft. Absent: tenderness DS: Diagnosis - Discharge Diagnosis (1) Small bowel obstruction Status: Acute (2) Vomiting and diarrhea Status: Acute Problem details: Patient is to advance to his normal diet. He is to follow-up in the office in 12-14 days for reassessment. At that point plan will likely be for a follow-up CT scan with oral contrast versus small bowel follow-through. Discharge Plan - Patient Discharge Instructions ACTIVITY: Continue current activity DIET: advance to your usual diet - Follow up Plan Follow up with: Curt Hui MD [Staff Physician] - 2 weeks Disposition: Home, Self-Long Term Medications: Home Medications Medication Instructions Recorded Confirmed Type Lisinopril [Lisinopril 40mg Tablet] 40 mg PO DAILY 07/10/17 07/12/17 History Omeprazole [Omeprazole 40mg 40 mg PO DAILY 07/10/17 07/12/17 History Capsule] Prescriptions/Medication Reconciliation: Continue Omeprazole [Omeprazole 40mg Capsule] 40 mg PO DAILY Lisinopril [Lisinopril 40mg Tablet] 40 mg PO DAILY
--- NOTE | 2017-07-14 16:34 | P.DS_ITS ---
General - General Admission date: 07/12/17 Discharge date: 07/14/17 HPI HPI: 42 year old male who presented to ED yesterday with several days of nausea/ vomiting and abdominal pain. He states that he woke up morning with abdominal cramps that became progressively worse and was associated with nausea/ vomiting. He attributed these symptoms to some pork he ate for dinner on Friday evening. He was seen in urgent care several times on Friday, where he received GI cocktails which improved the symptoms. Symptoms then got worse yesterday, prompting his visit to the ED. An NG was placed on admission last night and has put out ~2L in the last 14 hours. He states that his last BM was yesterday morning and was loose. He has passed a lot of flatus overnight and feels much better today. His labs are normal. His CT scan from last night shows a dilated stomach and proximal small bowel with decompressed distal small bowel and a transition point in the RLQ. Hospital Course Hospital Course: He had the nasogastric tube placed with initially significant output. This had given him some relief. Following morning he was feeling much better. Please note the patient continued to have loose stools and passing gas throughout his hospitalization. He underwent a clamping trial of the nasogastric tube on which she tolerated well. This was then discontinued and he was started on a clear liquid diet. He tolerated this well with no abdominal pain, bloating, nausea, or vomiting. Following morning he was feeling quite well. He underwent acute abdominal series evaluation which no evidence of any bowel obstruction. He was given a bland diet which she tolerated without difficulty. Arrangements were made for discharge home later that evening on 07/14/17. Objective Vital signs: Temp Pulse Resp BP Pulse Ox 98.2 F 91 H 18 123/89 98 07/14/17 16:00 07/14/17 16:00 07/14/17 16:00 07/14/17 16:00 07/14/17 16:00 no acute distress - *Routine Abdominal Exam Present: soft. Absent: tenderness DS: Diagnosis - Discharge Diagnosis (1) Small bowel obstruction Status: Acute (2) Vomiting and diarrhea Status: Acute Problem details: Patient is to advance to his normal diet. He is to follow-up in the office in 12-14 days for reassessment. At that point plan will likely be for a follow-up CT scan with oral contrast versus small bowel follow-through. Discharge Plan - Patient Discharge Instructions ACTIVITY: Continue current activity DIET: advance to your usual diet - Follow up Plan Follow up with: Curt Hui MD [Staff Physician] - 2 weeks Disposition: Home, Self-Snf Medications: Home Medications Medication Instructions Recorded Confirmed Type Lisinopril [Lisinopril 40mg Tablet] 40 mg PO DAILY 07/10/17 07/12/17 History Omeprazole [Omeprazole 40mg 40 mg PO DAILY 07/10/17 07/12/17 History Capsule] Prescriptions/Medication Reconciliation: Continue Omeprazole [Omeprazole 40mg Capsule] 40 mg PO DAILY Lisinopril [Lisinopril 40mg Tablet] 40 mg PO DAILY
== END 2017-07-14 16:55 | disposition home or self-care (01) | DRG 390 ==
LOC: ER 18:46 → 2ND 07-13 07:55
PROVIDERS: Admitting Provider Surgery; Emergency Provider Emergency Medicine; PCP Nurse Practitioner Family; Visit Provider Family Medicine
DX: K56.699 Other intestinal obstruction unspecified as to partial versus complete obstruction (principal); I10 Essential (primary) hypertension; K21.9 Gastro-esophageal reflux disease without esophagitis; Z86.011 Personal history of benign neoplasm of the brain
CPT/HCPCS: 36415; 74021; 74177; 80053; 83605; 83690; 83735; 84484; 85025; 96365; 96366; 96375; 99284; Q9967

== ENCOUNTER → 2018-11-04 09:26 | Outpatient (CLI) | payer SELFPAY ==
[2018-11-04 09:30] LABS: Microscopic, Urine URINE MICROSCOPIC (MICROSCOPIC)
[2018-11-04 10:06] LABS: Appearance,Urine CLEAR (Clear); Bilirubin,Urine Negative (Negative); Blood, Urine Negative (Negative); Color,Urine YELLOW (Yellow); Glucose,Urine (UA) Negative (Negative); Ketones,Urine Negative (Negative); Leukocyte Esterase,Urine Negative (Negative); Nitrate,Urine Negative (Negative); Protein,Urine Negative (Negative); Urobilinogen,Urine 0.2 EU/dl (0.2)
[2018-11-04 10:33] LABS: Bacteria,Urine Trace /lpf
== END ==
PROVIDERS: Visit Provider Surgery
DX: K40.90 Unilateral inguinal hernia, without obstruction or gangrene, not specified as recurrent (principal)
CPT/HCPCS: 81001

== ENCOUNTER → 2019-01-18 13:19 | Outpatient (CLI) | payer SELFPAY ==
--- NOTE | 2019-01-18 13:34 | CT_ITS ---
PROCEDURE: CT HEAD/BRAIN WO CON CLINICAL INDICATION: PERSISTANT H.A. Persistent headache in the occipital area. Prior brain surgery. COMPARISON: No exams were available for comparison TECHNIQUE: Axial images obtained with sagittal and coronal reformats. All CT scans at the facility use one or more dose reduction, viz: automated exposure control, ma/kV adjustment per patient size (including targeted exams where dose is matched to indication, i.e. head), or iterative reconstruction technique. FINDINGS: No midline shift, mass effect, intracranial hemorrhage, hydrocephalus, or extra-axial fluid collection is evident. There has been prior right frontal craniotomy the calvarium has an unremarkable appearance. No mastoid effusion. No sinus air-fluid level. IMPRESSION: Prior right frontal craniotomy. No acute intracranial findings. Dictated by: Nikolay Yanez MD 01/19/2019 06:13 Electronically signed by Nikolay Yanez MD in [place] 01/19/2019 06:13
== END ==
PROVIDERS: PCP Nurse Practitioner Family; Visit Provider Nurse Practitioner Family
DX: G44.52 New daily persistent headache (NDPH) (principal); I10 Essential (primary) hypertension
CPT/HCPCS: 70450